=== PATIENT | male | born 1990 | race Caucasian/White ===

== ENCOUNTER 2018-05-22 20:10 | Emergency (ER) | payer MEDICAID ==
[~2018-05-22] VITALS: Ht 170.2 cm; Wt 82.0 kg
[2018-05-22] MEDS ORDERED: MORPHINE SULFATE 10 MG/ML CPJ IV ONE (21:30)
[2018-05-22] MEDS ORDERED: LIDOCAINE HCL/PF 1% 10 MG/ML 5ML VIAL IJ ONE (21:30)
[2018-05-22] MEDS ORDERED: TETANUS, DIPHTHERIA, PERTUSSIS VAC/PF 0.5ML (>7YR OLD) IM ONE (21:30)
[2018-05-22] MEDS ORDERED: BACITRACIN ZINC OINT UDPKT TOP ONE (21:30)
[2018-05-23] MEDS ORDERED: BACITRACIN ZINC OINT UDPKT TOP ONE (00:30)
[2018-05-23 00:45] VITALS: BP 118/72
== END 2018-05-23 01:22 | disposition home or self-care (01) ==
LOC: ER 20:10
DX: S01.81XA Laceration without foreign body of other part of head, initial encounter (principal); S01.311A Laceration without foreign body of right ear, initial encounter; F17.200 Nicotine dependence, unspecified, uncomplicated; F12.10 Cannabis abuse, uncomplicated; V49.49XA Driver injured in collision with other motor vehicles in traffic accident, initial encounter; Y93.89 Activity, other specified; Y92.89 Other specified places as the place of occurrence of the external cause; Y99.8 Other external cause status
CPT/HCPCS: 12016; 90471; 90715; 96374; 99283; J2270; J3490

== ENCOUNTER 2018-05-30 10:15 | Emergency (ER) | payer MEDICAID ==
[~2018-05-30] VITALS: Ht 160 cm; Wt 59.0 kg
[2018-05-30 10:47] VITALS: BP 135/75
== END 2018-05-30 13:27 | disposition home or self-care (01) ==
LOC: ER 10:15
DX: Z48.02 Encounter for removal of sutures (principal); L03.90 Cellulitis, unspecified
CPT/HCPCS: 99283